=== PATIENT | female | born 1945 | race Hispanic/Latino ===

== ENCOUNTER 2018-10-29 15:21 | Emergency (ER) | payer OTHER, MEDICARE | END 2018-10-29 18:22 | disposition home or self-care (01) | LOC: EDH 15:21 | DX: S00.03XA Contusion of scalp, initial encounter (principal); E11.9 Type 2 diabetes mellitus without complications; I10 Essential (primary) hypertension; E78.00 Pure hypercholesterolemia, unspecified; W18.39XA Other fall on same level, initial encounter; Y93.89 Activity, other specified; Y92.89 Other specified places as the place of occurrence of the external cause; Y99.8 Other external cause status | CPT/HCPCS: 70450; 72125 ==

== ENCOUNTER 2023-04-04 06:56 | Observation (INO) | payer OTHER, MEDICARE ==
[2023-03-29 16:27] LABS: BASOPHILS # (AUTO) 0.02 K/uL (0.00-0.20); BASOPHILS % (AUTO) 0.3 % (0.0-5.0); EOSINOPHILS # (AUTO) 0.16 K/uL (0.00-0.70); EOSINOPHILS % (AUTO) 2.4 % (0.0-8.0); HEMATOCRIT 38.5 % (36-48); IMMATURE GRANULOCYTE ABSOLUTE 0.02 K/uL (0-1); LYMPHOCYTES # (AUTO) 1.2 K/uL (1.0-4.8); LYMPHOCYTES % (AUTO) 18.2 % (21.0-51.0); MEAN CORPUSCULAR HGB CONC 30.9 g/dL (32.0-36.0); MEAN CORPUSCULAR VOLUME 87.3 fL (79-99); MONOCYTES # (AUTO) 0.4 K/uL (0.1-1.0); NEUTROPHILS # (AUTO) 4.9 K/uL (1.8-7.7); NEUTROPHILS % (AUTO) 72.8 % (40.0-77.0); PLATELET COUNT (AUTO) 335 K/uL (130-400); RED BLOOD CELL COUNT(AUTO) 4.41 MIL/uL (4.00-5.50); RED CELL DISTRIBUTION WIDTH 15.4 % (11.0-15.5); WHITE BLOOD COUNT (AUTO) 6.7 K/uL (4.8-10.8)
[2023-03-29 16:36] LABS: INR 0.94 (0.85-1.15); PROTHROMBIN TIME 10.9 SEC (9.6-11.6)
[2023-03-29 16:37] LABS: CREATININE 0.8 mg/dL (0.5-1.5); PARTIAL THROMBOPLASTIN TIME 29.6 SEC (26.3-35.5); POTASSIUM 4.4 mmol/L (3.5-5.1)
[2023-03-30 16:36] VITALS: BP 160/77; PULSE 58; RESP 18
[2023-04-04] VITALS (34 sets, daily range): BP systolic 95–139; BP diastolic 45–84; PULSE 52–72; RESP 14–20; O2SAT 98
[~2023-04-04] VITALS: Ht 160 cm; Wt 71.2 kg
[~2023-04-04 06:56] MED LIST: ACET-2247 PO; BROM1.7D12 OS; FERS325 PO; GUAI-966 PO; HYDR453.3 TP; LOPE2CAP PO; MAGN800O2 PO; PANT40TA PO; PERID15L MM; POTA20LI52 PO; PRAV40TA3 PO; PRED5DRO25 OS; SIME80TA12 PO; SITA100T12 PO; TIMO5DRO47 OU; TRAM50TA4 PO; WHEA236P PO; [UNRECOGNIZED DRUG - CODE] PO; hydrocortisone RC; lactobacillus PO
[2023-04-04] MEDS ORDERED: 0.9%NACL 1000ML 1,000 ML IV ONE (07:21)
[2023-04-04] MEDS: 0.9%NACL 1000ML 1,000 ML IV SCH ×3 (07:30→22:22)
[2023-04-04] MEDS ORDERED: KCL 20 MEQ ERTAB PO PRN (07:30)
[2023-04-04] MEDS ORDERED: LOPERAMIDE HCL 2 MG CAP PO PRN (07:30)
[2023-04-04] MEDS ORDERED: POTASSIUM CHLORIDE 20MEQ/100ML 100 ML IV PRN (07:30)
[2023-04-04] MEDS ORDERED: HYDROCODONE/ACETAMINOPHEN 5/325 MG TAB PO PRN (07:30)
[2023-04-04] MEDS ORDERED: POTASSIUM CHLORIDE 10% ELIXIR 20 MEQ/15 ML UDCUP PO PRN (07:30)
[2023-04-04] MEDS ORDERED: HYDROCODONE/ACETAMINOPHEN 10/325 MG TAB PO PRN (07:30)
[2023-04-04] MEDS ORDERED: MORPHINE 4 MG SYG IVP PRN (07:30)
[2023-04-04] MEDS: INSULIN HUMULIN R 100 UNIT/ML 3ML SQ SCH ×4 (07:30→20:23)
[2023-04-04] MEDS ORDERED: ONDANSETRON 4MG INJ IVP PRN (07:30)
[2023-04-04] MEDS ORDERED: VANCOMYCIN 1.5 GM/250 ML BAG 250 ML IV SCH (08:00)
[2023-04-04] MEDS ORDERED: FENTANYL CITRATE PF 50 MCG/1 ML 2ML VIAL ONE ×2 (08:09→11:20)
[2023-04-04] MEDS ORDERED: PROPOFOL 10 MG/ML 20ML VIAL IV ONE (08:09)
[2023-04-04] MEDS ORDERED: MIDAZOLAM HCL 1 MG/ML 2ML VIAL ONE (08:09)
[2023-04-04] MEDS ORDERED: ROCURONIUM BROMIDE 10MG/1ML 5ML VL ONE (08:43)
[2023-04-04] MEDS ORDERED: ONDANSETRON 4MG INJ ONE ×3 (08:44→13:20)
[2023-04-04] MEDS ORDERED: ROPIVACAINE 0.5% 5MG/ML 30ML ONE (08:48)
[2023-04-04] MEDS ORDERED: NON-FORMULARY MEDICATION 1 EACH (Ferrous Sulfate 325 MG) PO SCH (09:00)
[2023-04-04] MEDS: CHLORHEXIDINE GLUCONATE 15 ML MOUTHWASH MM SCH ×2 (09:00→20:23)
[2023-04-04] MEDS: PANTOPRAZOLE 40 MG TAB DR PO SCH (09:00)
[2023-04-04] MEDS: ASPIRIN 81 MG EC TAB PO SCH ×2 (09:00→20:19)
[2023-04-04] MEDS: TIMOLOL 0.5% OU SCH ×2 (09:00→19:50)
[2023-04-04] MEDS: PREDNISOLONE ACETATE OS SCH ×4 (09:00→19:50)
[2023-04-04] MEDS: FAMOTIDINE 20MG TAB PO SCH ×2 (09:00→20:23)
[2023-04-04] MEDS: BROMFENAC SODIUM OS SCH (09:00)
[2023-04-04] MEDS: POLYETHYLENE GLYCOL 3350 17 GM POWD.PACK PO SCH (09:00)
[2023-04-04] MEDS ORDERED: DEXAMETHASONE SOD PHOSPHATE 10MG/ML 1ML VIAL ONE (09:36)
[2023-04-04] MEDS ORDERED: TRANEXAMIC ACID 1000MG/10ML IV ONE (09:50)
[2023-04-04] MEDS ORDERED: MEPERIDINE-PF 25 MG/ML SYG ONE ×2 (09:58→12:00)
[2023-04-04] MEDS ORDERED: TRANEXAMIC ACID 1000MG/10ML ONE (10:01)
[2023-04-04] MEDS ORDERED: IBUPROFEN 800MG + NS 250ML IV SCH (10:30)
[2023-04-04] MEDS ORDERED: NEOSTIGMINE METHYLSULFATE 1MG/ML IV ONE (11:19)
[2023-04-04] MEDS ORDERED: GLYCOPYRROLATE 0.2 MG/ML 5 ML VIAL ONE (11:19)
[2023-04-04] MEDS ORDERED: ACETAMINOPHEN 1,000 MG/100 ML VIAL IV ONE (11:53)
[2023-04-04] MEDS: TRAMADOL HCL 50 MG TABLET PO SCH ×2 (12:00→18:08)
[2023-04-04] MEDS: ACETAMINOPHEN 1,000 MG/100 ML VIAL IV SCH ×3 (12:12→18:54)
[2023-04-04] MEDS ORDERED: CALDOLOR 800MG+NS 250ML 250 ML IV ONE (13:26)
[2023-04-04] MEDS: VANCOMYCIN 1G/250ML KIT 250 ML IV SCH (13:30)
[2023-04-04] MEDS: IBUPROFEN 800 MG IV SCH ×2 (13:31→20:23)
[2023-04-04] MEDS: SODIUM CHLORIDE IV SCH ×2 (13:31→20:23)
[2023-04-04] MEDS: FERROUS SULFATE 325 MG TABLET.DR PO SCH (20:23)
[2023-04-05] VITALS (9 sets, daily range): BP systolic 96–128; BP diastolic 42–70; PULSE 58–91; RESP 16–22; O2SAT 95–97
[2023-04-05] MEDS: TRAMADOL HCL 50 MG TABLET PO SCH ×4 (00:03→23:21)
[2023-04-05] MEDS: VANCOMYCIN 1G/250ML KIT 250 ML IV SCH (00:04)
[2023-04-05] MEDS: IBUPROFEN 800 MG IV SCH (03:24)
[2023-04-05] MEDS: SODIUM CHLORIDE IV SCH (03:24)
[2023-04-05 04:31] LABS: HEMATOCRIT 28.8 % (36-48); MEAN CORPUSCULAR HEMOGLOBIN 26.4 pg (27.0-33.0); MEAN CORPUSCULAR HGB CONC 30.2 g/dL (32.0-36.0); MEAN CORPUSCULAR VOLUME 87.3 fL (79-99); RED BLOOD CELL COUNT(AUTO) 3.3 MIL/uL (4.00-5.50); RED CELL DISTRIBUTION WIDTH 15.2 % (11.0-15.5); WHITE BLOOD COUNT (AUTO) 7.2 K/uL (4.8-10.8)
[2023-04-05 04:47] LABS: CREATININE 0.8 mg/dL (0.5-1.5); POTASSIUM 4.5 mmol/L (3.5-5.1)
[2023-04-05] MEDS: INSULIN HUMULIN R 100 UNIT/ML 3ML SQ SCH ×4 (05:53→20:03)
[2023-04-05] MEDS: PREDNISOLONE ACETATE OS SCH ×4 (09:00→20:03)
[2023-04-05] MEDS: BROMFENAC SODIUM OS SCH (09:00)
[2023-04-05] MEDS: TIMOLOL 0.5% OU SCH ×2 (09:00→20:03)
[2023-04-05] MEDS: CHLORHEXIDINE GLUCONATE 15 ML MOUTHWASH MM SCH ×2 (10:15→20:03)
[2023-04-05] MEDS: FAMOTIDINE 20MG TAB PO SCH ×2 (10:17→20:02)
[2023-04-05] MEDS: FERROUS SULFATE 325 MG TABLET.DR PO SCH (10:17)
[2023-04-05] MEDS: POLYETHYLENE GLYCOL 3350 17 GM POWD.PACK PO SCH (10:17)
[2023-04-05] MEDS: ASPIRIN 81 MG EC TAB PO SCH ×2 (10:17→20:02)
[2023-04-05] MEDS: PANTOPRAZOLE 40 MG TAB DR PO SCH (13:19)
[2023-04-05] MEDS: FERROUS GLUCONATE 324MG TABLET.DR PO SCH (20:03)
[2023-04-06] VITALS (7 sets, daily range): BP systolic 102–136; BP diastolic 50–73; PULSE 73–88; RESP 18–20; O2SAT 95–96
[2023-04-06] MEDS: TRAMADOL HCL 50 MG TABLET PO SCH ×3 (05:02→17:57)
[2023-04-06] MEDS: INSULIN HUMULIN R 100 UNIT/ML 3ML SQ SCH ×4 (05:44→19:48)
[2023-04-06] MEDS: BROMFENAC SODIUM OS SCH (09:00)
[2023-04-06] MEDS: TIMOLOL 0.5% OU SCH ×2 (09:00→19:47)
[2023-04-06] MEDS: PREDNISOLONE ACETATE OS SCH ×4 (09:00→19:47)
[2023-04-06] MEDS: ASPIRIN 81 MG EC TAB PO SCH ×2 (09:41→19:44)
[2023-04-06] MEDS: FAMOTIDINE 20MG TAB PO SCH ×2 (09:41→19:45)
[2023-04-06] MEDS: POLYETHYLENE GLYCOL 3350 17 GM POWD.PACK PO SCH (09:41)
[2023-04-06] MEDS: CHLORHEXIDINE GLUCONATE 15 ML MOUTHWASH MM SCH ×2 (09:41→19:44)
[2023-04-06] MEDS: FERROUS GLUCONATE 324MG TABLET.DR PO SCH ×2 (09:41→19:45)
[2023-04-06] MEDS: PANTOPRAZOLE 40 MG TAB DR PO SCH (09:46)
[2023-04-07] MEDS: TRAMADOL HCL 50 MG TABLET PO SCH ×4 (00:04→18:00)
[2023-04-07 03:42] VITALS: BP 127/53; PULSE 88; RESP 20
[2023-04-07] MEDS: INSULIN HUMULIN R 100 UNIT/ML 3ML SQ SCH ×3 (06:10→16:30)
[2023-04-07] MEDS ORDERED: BISACODYL 10 MG SUPP.RECT RC PRN (07:30)
[2023-04-07 08:00] VITALS: BP 126/68; PULSE 88; RESP 18; O2SAT 96
[2023-04-07] MEDS: BROMFENAC SODIUM OS SCH (09:00)
[2023-04-07] MEDS: TIMOLOL 0.5% OU SCH (09:00)
[2023-04-07] MEDS: PREDNISOLONE ACETATE OS SCH ×3 (09:00→17:00)
[2023-04-07] MEDS: CHLORHEXIDINE GLUCONATE 15 ML MOUTHWASH MM SCH (09:21)
[2023-04-07] MEDS: FAMOTIDINE 20MG TAB PO SCH (09:21)
[2023-04-07] MEDS: PANTOPRAZOLE 40 MG TAB DR PO SCH (09:21)
[2023-04-07] MEDS: ASPIRIN 81 MG EC TAB PO SCH (09:21)
[2023-04-07] MEDS: FERROUS GLUCONATE 324MG TABLET.DR PO SCH (09:21)
[2023-04-07] MEDS: POLYETHYLENE GLYCOL 3350 17 GM POWD.PACK PO SCH (09:21)
[2023-04-07 12:00] VITALS: BP 130/73; PULSE 89; RESP 20
[2023-04-07 16:00] VITALS: BP 125/44; PULSE 69; RESP 20
== END 2023-04-07 19:00 ==
LOC: DAH 06:56 → DAHIP 06:57 → DAH 07:51 → 4AH 16:00
PROVIDERS: ADMIT Orthopaedic Surgery; ATTEND Orthopaedic Surgery
DX: M17.11 Unilateral primary osteoarthritis, right knee (principal); M24.561 Contracture, right knee; M81.0 Age-related osteoporosis without current pathological fracture; M47.816 Spondylosis without myelopathy or radiculopathy, lumbar region; E11.9 Type 2 diabetes mellitus without complications; I10 Essential (primary) hypertension; M48.00 Spinal stenosis, site unspecified; E78.5 Hyperlipidemia, unspecified; E66.9 Obesity, unspecified; Z79.899 Other long term (current) drug therapy
CPT/HCPCS: 80048 ×2; 85025; 85610; 85730; 36415 ×2; 87641; 64447; 27447; 96365; 96366 ×2; 96375; 96367; 82948 ×15; 73562; 97161; 97530 ×14; 85027; A6260; C1713; G0378 ×74; A4663; J7030 ×2; A4649 ×3; J3010 ×2; J3490 ×4; J1100; J2250; J2704; J2405 ×4; J2710; J2175 ×2; J2795; J1741 ×4; J3370 ×2; A6223; G0168; A4930 ×2; A6212; C1776 ×3; A4215 ×2; A4223; A4222; A4221; 96368; 96376

== ENCOUNTER → 2023-07-12 | Outpatient (CLI) | payer OTHER, MEDICARE | END | disposition home or self-care (01) | LOC: RAH 13:49 | PROVIDERS: ATTEND Student in an Organized Health Care Education/Training Program | DX: I10 Essential (primary) hypertension (principal); E78.5 Hyperlipidemia, unspecified; E11.9 Type 2 diabetes mellitus without complications; E66.9 Obesity, unspecified; Z79.899 Other long term (current) drug therapy; Z82.49 Family history of ischemic heart disease and other diseases of the circulatory system | CPT/HCPCS: 93306 ==

== ENCOUNTER → 2023-07-26 | Outpatient (CLI) | payer OTHER, MEDICARE | END | disposition home or self-care (01) | LOC: RAH 14:11 | PROVIDERS: ATTEND Student in an Organized Health Care Education/Training Program | DX: R09.89 Other specified symptoms and signs involving the circulatory and respiratory systems (principal) | CPT/HCPCS: 93880 ==

== ENCOUNTER → 2023-07-27 | Outpatient (CLI) | payer OTHER, MEDICARE | END | disposition home or self-care (01) | LOC: RAH 09:47 | PROVIDERS: ATTEND Student in an Organized Health Care Education/Training Program | DX: I71.40 Abdominal aortic aneurysm, without rupture, unspecified (principal) | CPT/HCPCS: 76706; 76775 ==